=== PATIENT | female | born 1995 | race African-American/Black ===

== ENCOUNTER 2016-09-18 01:04 | Emergency (ER) | payer MEDICAID, OTHER ==
[~2016-09-18 01:04] MED LIST: CHLO.12%30 SSP; IBUP800T23 PO; PENI500T PO
[2016-09-18 01:08] VITALS: BP 120/73; PULSE 76; RESP 18; TEMP 98.5; O2SAT 98
--- NOTE | 2016-09-18 02:37 | PD ---
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 She reports that on September 14 she had STD testing performed at [facility]. She reports that she had a positive chlamydia result, negative other STDs. She is presenting requesting treatment. Denies any symptomology such as pelvic pain, vaginal discharge. Denies . She has no other complaints. PFSH Past Medical History Medical History: Denies Significant Hx ?: Not Social History Alcohol Use: No Tobacco Use: No Substance Use: No Allergies-Medications (Allergen,Severity, Reaction): Coded Allergies: No Known Allergies (Unverified , 09/18/16) Reported Meds & Prescriptions Reported Meds & Active Scripts Active No Active Prescriptions or Reported Medications Review of Systems Except as stated in HPI: all other systems reviewed are Neg Physical Exam Narrative GENERAL: Well-developed well-nourished female in no acute distress SKIN: Warm and dry. CARDIOVASCULAR: Regular rate and rhythm. No murmur appreciated. RESPIRATORY: No accessory muscle use. Clear to auscultation. Breath sounds equal bilaterally. GASTROINTESTINAL: Abdomen soft, non-tender, nondistended. Data Data Last Documented VS Vital Signs Date Time Temp Pulse Resp B/P Pulse Ox O2 Delivery O2 Flow Rate FiO2 09/18/16 01:53 18 09/18/16 01:08 98.5 76 120/73 98 Orders Azithromycin Powd Pack (Zithromax Powd P (09/18/16 02:45) [facility] Medical Decision Making Medical Screen Exam Complete: Yes Emergency Medical Condition: Yes Medical Record Reviewed: Yes Differential Diagnosis Chlamydia, gonorrhea, trichomoniasis Narrative Course 21-year-old female presents requesting treatment for positive Chlamydia test at [facility] in September 14. She has no symptoms at this time. She is being treated with azithromycin and it is recommended that she follow up with her primary care physician as needed. Her partner is here to be tested as well. Diagnosis Primary Impression: History of chlamydia Additional Instructions: Follow-up with primary care physician. Use barrier contraception. Med/Other Pt SpecificInfo: No Change to Meds Scripts No Active Prescriptions or Reported Meds Disposition: 01 DISCHARGE HOME Condition: Stable Azeb,Mario P. PA Sep 18, 2016 02:37
[2016-09-18] MEDS ORDERED: AZITHROMYCIN PWD FOR SUSP 1 GM PACKET PO ONE (02:45)
== END 2016-09-18 03:29 | disposition home or self-care (01) ==
LOC: NEPB 01:04
DX: A74.9 Chlamydial infection, unspecified (principal)
CPT/HCPCS: 99283